=== PATIENT | male | born 1985 | race Caucasian/White ===

== ENCOUNTER 2023-07-02 11:26 | Day surgery (SDC) | payer OTHER ==
[2023-07-02] MEDS ORDERED: LACTATED RINGERS 1,000 ML IV ONE (12:12)
--- NOTE | 2023-07-02 12:41 | ANESTHESIA ---
Pre-Anesthesia VS, & Labs - Diagnosis desires sterilization - Procedure vasectomy Vital Signs: Temp Pulse Resp BP Pulse Ox O2 Flow Rate 36.2 C L 66 10 L 131/90 H 98 07/02/23 11:55 07/02/23 11:55 07/02/23 11:55 07/02/23 11:55 07/02/23 11:55 Height: 6 ft 6 in Weight (kg): 131 kg Body Mass Index: 33.3 BMI Classification: Obese - NPO >8 hours Home Medications and Allergies Home Medications: Ambulatory Orders Dextroamphetamine/Amphetamine [Adderall 10 mg Tablet] 10 mg PO DAILY 06/26/23 Levothyroxine Sodium [Synthroid] 224 mcg PO DAILY 06/26/23 Dextroamphetamine/Amphetamine [Adderall 10 mg Tablet] 10 mg PO DAILY 06/26/23 Levothyroxine Sodium [Synthroid] 224 mcg PO DAILY 06/26/23 Allergies/Adverse Reactions: Allergies Allergy/AdvReac Type Severity Reaction Status Date / Time No Known Drug Allergies Allergy Verified 06/26/23 09:30 Anes History & Medical History - Anesthetic History Anesthesia Complications: reports: No previous complications Family history of Anesthesia Complications: Denies Family history of Malignant Hyperthermia: Denies - Medical History Cardiovascular: reports: None Pulmonary: reports: Sleep apnea, Other (current cough) Gastrointestinal: reports: Diverticulitis Urinary: reports: None Musculoskeletal: reports: None Endocrine/Autoimmune: reports: Other Psychosocial: reports: Alcohol, Cannabis (occasional) History of Cancer?: Yes (thyroid) - Surgical History General: reports: Other Eyes Ears Nose Throat (EENT): reports: Myringotomy (tubes) Exam General: Alert, Oriented x3, Cooperative Dental: WNL Mouth Openin Fingerbreadth Neck Mobility: Normal Mallampati classification: II Thyromental Distance: less than 4 cm Respiratory: Lungs clear Cardiovascular: Regular rate Plan Anesthesia Type: General, Total IV Consent for Procedure(s) Verified and Reviewed: Yes Code Status: Attempt Resuscitation ASA classification: 2-Mild systemic disease Is this case an emergency?: No
--- NOTE | 2023-07-02 13:25 | OPERATIVE REPORT ---
Operative Report - General Procedure Date: 07/02/23 Planned Procedure: bilateral vasectomy Pre-Op Diagnosis: elective sterilization Procedure Performed: bilateral vasectomy Post Op Diagnosis: elective sterilization - Procedure Note Primary Surgeon: Damion Anesthesia Provider: LEATHA Anesthesia Technique: General LMA Estimated Blood Loss (mL): 1 Findings: right sided venous bleeding from distal stump oversewn Complications: converted to LMA from mac sedation - Other Other Information/Narrative: After informed consent was obtained the patient was brought to the OR and laid in the supine position. At that point time the patient was anesthetized per anesthesia protocols, and prepped and draped in usual sterile fashion. A timeout was performed reconfirming the patient and procedure. Attention was paid to the left side where the vas deferens was identified. A small skin wheal was raised with 0.5% Marcaine. The patient was under MAC sedation but after starting the case he was converted to LMA for better sedation. Using a sharp mosquito the scrotal skin was carefully dissected away and the vas was identified. The vas sheath was opened with a blade and the vas was grasped and stripped out. It was then clamped on both sides with mosquitoes and the inner portion was cauterized away. These ends were then suture-ligated with 3-0 chromic suture. The distal end was allowed to drop back in and a fascial interposition stitch was placed. Hemostasis was excellent. Then the skin was then closed with 3-0 chromic suture. Identical procedure was then performed on the right side, except after suture ligating the right distal stump, some venous bleeding was noted and so this was oversewn again. After this, there was excellent hemostasis. Band-Aids were placed. This concluded the procedure. Counts were correct.
[2023-07-02] MEDS ORDERED: HYDROcod/ACETAM 5/325 MG TABLET PO PRN (14:21)
[2023-07-02] MEDS ORDERED: LACTATED RINGERS 50 ML IV ONE ×3 (14:22→14:42)
[2023-07-02] MEDS ORDERED: MORPHINE 2 MG/ML CARPUJECT IVP PRN (14:28)
[2023-07-02] MEDS ORDERED: METOCLOPRAMIDE 10 MG/2 ML VIAL IVP PRN (14:28)
[2023-07-02] MEDS ORDERED: ePHEDrine 50 MG/ML VIAL IVP PRN (14:28)
[2023-07-02] MEDS ORDERED: NALOXONE 0.4 MG/ML VIAL IVP PRN (14:28)
[2023-07-02] MEDS ORDERED: fentaNYL 100 MCG/2 ML VIAL IVP PRN (14:28)
[2023-07-02] MEDS ORDERED: ATROPINE ABBOJECT 1 MG/10 ML SYRINGE IVP PRN (14:28)
[2023-07-02] MEDS ORDERED: HYDROmorphone 0.5 MG/0.5 ML SYRINGE IVP PRN (14:28)
[2023-07-02] MEDS ORDERED: ONDANSETRON 4 MG/2 ML VIAL IVP PRN (14:28)
--- NOTE | 2023-07-02 14:31 | Discharge Plan ---
Discharge Plan Problem Reviewed?: Yes Disposition: Home, Self Care Condition: Good Diet: Regular Activity Restrictions: Additional Comments (as instructed) Driving Restrictions: No Instruction Topics: Vasectomy No Scalpel No Smoking: If you smoke, Please STOP! Call for help. Follow-up with: Brittny Dobson MD [Primary Care Provider] -
[2023-07-02 14:54] VITALS: O2SAT 100
[2023-07-02] MEDS ORDERED: LACTATED RINGERS 1,000 ML IV SCH (15:00)
[2023-07-02 15:13] VITALS: BP 121/87
--- NOTE | 2023-07-02 16:05 | ANESTHESIA POST OP EVALUATION ---
Anesthesia Post Eval - Post Anesthesia Eval Vitals: Last Vital Signs Temp 36.2 C L 07/02/23 15:05 Pulse 57 L 07/02/23 15:05 Resp 16 07/02/23 15:05 BP 121/87 H 07/02/23 15:05 Pulse Ox 100 07/02/23 15:05 O2 Flow Rate CV Function Including HR & BP: Stable Pain Control: Satisfactory Nausea & Vomiting: Negative Mental Status: Baseline Respiratory Status: Airway Patent Hydration Status: Satisfactory Anesthesia Complications: None
== END 2023-07-02 11:27 | disposition home or self-care (01) ==
LOC: OR 11:26
PROVIDERS: ATTEND Urology
DX: Z30.2 Encounter for sterilization (principal); G47.30 Sleep apnea, unspecified; E66.9 Obesity, unspecified; Z68.33 Body mass index [BMI] 33.0-33.9, adult

== ENCOUNTER 2023-11-30 07:20 | Outpatient (CLI) | payer OTHER ==
--- NOTE | 2023-11-30 07:57 | CT Report ---
PROCEDURE: Abdomen/Pelvis WO INDICATIONS: ABNORMAL FINDINGS IN URINE TECHNIQUE: A CT scan of the abdomen and pelvis was performed without the use of intravenous contrast. Images we re recorded and evaluated at appropriate window settings. Reformats: coronal and sagittal. For radiat ion dose reduction, the following was used: automated exposure control, adjustment of mA and/or kV ac cording to patient size. COMPARISON: None. FINDINGS: Image quality: Diagnostic. Lower chest: Unremarkable. Liver: No contour-deforming mass. Gallbladder and biliary tree: No radiopaque stones or wall thickening. No biliary dilation. Spleen: No splenomegaly. Pancreas: No pancreatic ductal dilation. Adrenals: No adrenal nodule. Kidneys and ureters: No hydronephrosis. No renal cystic lesion which requires follow up. No solid mas s. 2.9 cm right upper pole renal cyst.. Stomach, bowel and peritoneum: Moderate sigmoid diverticulosis is present. There is mild inflammatory change in the adjacent fat consistent with mild uncomplicated sigmoid diverticulitis. Normal appendi x. Lymph nodes: No central or retroperitoneal adenopathy. Vessels: No infrarenal aortic aneurysm. PELVIS Reproductive organs: Unremarkable. Bladder: No wall thickness, accounting for underdistention. Pelvic lymph nodes: No pelvic adenopathy by size criteria. Bones: No aggressive osseous abnormality. There is a moderate central posterior disc protrusion at L2 -L3 resulting in at least moderate canal stenosis. Other: No significant ventral or inguinal hernia. IMPRESSION: 1. Mild uncomplicated sigmoid diverticulitis. 2. No renal stone, ureteral stone, or hydronephrosis. 3. Note made of moderate central posterior disc protrusion at L2-L3, with at least moderate resultant canal stenosis. Reviewed by: Tate Grigsby MD on 11/30/2023 7:55 AM PDT Approved by: Tate Grigsby MD on 11/30/2023 7:55 AM PDT Station ID: [id number]
== END 2023-11-30 07:21 | disposition home or self-care (01) ==
LOC: DI 07:20
PROVIDERS: ATTEND Internal Medicine
DX: R82.998 Other abnormal findings in urine (principal); K57.32 Diverticulitis of large intestine without perforation or abscess without bleeding; S33.121A Dislocation of L2/L3 lumbar vertebra, initial encounter; M48.061 Spinal stenosis, lumbar region without neurogenic claudication

== ENCOUNTER 2024-02-20 10:19 | Outpatient (CLI) | payer OTHER ==
--- NOTE | 2024-02-20 10:54 | Sleep Patient Instructions ---
Sleep Center Visit Summary - Patient Visit Information Reason for Visit: Initial consult for evaluation of sleep disordered breathing and other sleep issues. - Patient Instructions Instructions Attached: Sleep Study, Sleep Study Home Monitor Additional Instructions: You will be completing a sleep study, either an in-lab polysomnography (PSG) or home sleep study (HST). You will follow-up in the sleep care office after the sleep study is completed to hear the results and talk about therapy, if needed. You will be called by our office staff to schedule this appointment, but you may contact us with any questions. - Clinic Information Contact: [facility] [address] [place] [id number] [email or web address] T: [phone]
--- NOTE | 2024-02-20 10:56 | SLEEP CARE CONSULTATION ---
Information from patient questionnaire entered by Johana Cruz. I have reviewed and concur with the information entered by Johana Cruz. This document represents the service I personally performed and the decisions made by me, Sandra Torres ARNP. History of Present Illness Service Date and Time: 02/20/2024 1019 Reason for Visit: New patient, Previously diagnosed sleep apnea Chief Complaint: reports: Insomnia, Unrefreshed sleep, Snoring, Excessive daytime sleepiness, Fatigue, Frequent awakenings at night Date of Onset: AT LEAST 5YRS Usual bedtime: 2400 Time it takes to fall asleep: 1HR Snores at night: Yes Observed to quit breathing while asleep: Yes Sleeps alone due to snoring: No Number of times waking at night: 2-3 Reasons for waking at night: reports: Snoring, Bathroom, Other (UNKNOWN). denies: Choking, Gasping for air Toss, Turn, or Twitch while sleeping: Yes Recalls having dreams: No Usually gets out of bed at: 0700 Feels refreshed in the morning: No Morning headache: No Sleepy or fatigued during the day: Yes Ever fallen asleep while driving: No Takes day naps: No Dreams during day naps: Yes Prior sleep studies: Yes Year and Where: 09/16/2021 [facility]; [place], [place] Type of Sleep Study: Home sleep study Additional HPI information: I had the pleasure of seeing ELVIA STYLES today regarding the possibility of him having a sleep disorder. His current complaints are insomnia, unrefreshed sleep, snoring, excessive daytime sleepiness, fatigue and frequent night awakenings. He snores loudly according to his and children. He has tried snoring strips with no improvement of his snoring. He was previously diagnosed with sleep apnea in 2021 and tried CPAP for about a month. He was unable to get to use it and sent it back. He has come back to try to take care of himself to be there for his family. He continues to wake up feeling tired and feeling fatigued during the day. - Parasomnia Symptoms Ever been unable to move upon waking from sleep: No Walks in sleep: No Talks in sleep: Yes Ever acted out dreams in sleep: No Ever felt weak in the knees when startled or emotional: No Bothered by creepy, crawly, restless sensations in legs: No Problems with memory or concentration: Yes (both) Subjective Initial [place] Sleepiness Scale score: 8 (02/20/24) Past Medical History Past Medical History: reports: Hypothyroidism, Attention deficit (ADHD), Other (THYROID CANCER THYROIDECTOMY; Diverticulitis) Social History The patient's occupation is a [employer]. Patient is Single and lives in . Have you smoked in the past 12 months: No Years of smokin Quit date: 2013 Alcohol use: Yes Alcohol amount and frequency: 1-4 BEERS PER WEEK Caffeine use: Yes Caffeine amount and frequency: 2CUPS COFFEE QD Family History Family history of sleep disordered breathing: Yes Family Hx Sleep Apnea: Father: Snoring, Sibling: Snoring Allergies and Home Medications Known drug allergies: No Drug allergies reviewed: Yes Home medication list reviewed: Yes (as listed) Allergy and home medication list: Allergies No Known Drug Allergies Allergy (Verified 02/20/24 10:20) Home Medications Medication Instructions Recorded Confirmed Last Taken Type Dextroamphetamine/Amphetamine 10 mg PO DAILY 06/26/23 02/20/24 07/01/23 History [Adderall 10 mg Tablet] Levothyroxine Sodium [Synthroid] 224 mcg PO DAILY 06/26/23 02/20/24 07/02/23 History Review of Systems Weight gain over past 5 years: 25 Weight loss over past 5 years: 35, currently down Cardiovascular: denies: high blood pressure Gastrointestinal: reports: heartburn, diarrhea, other (DIVERTICULITIS) Neurological: denies: headaches Psychiatric: reports: Attention Deficit Hyperactivity Ear/Nose/Throat: reports: wisdom teeth removed. denies: tonsillectomy Endocrine: reports: thyroid disease Physical Exam Vital signs obtained and entered by: JOHANA Ledesma MA Blood Pressure: 124/92 (LEFT ARM) Cuff size: long Heart Rate: 78 O2 Saturation: 99 Height: 6 ft 5 in Weight: 280 lb 12.8 oz Body Mass Index: 33.3 BMI Classification: Obese Neck circumference: 16.75 Nostrils: patent to airflow Mouth and throat: narrow oropharynx Soft palate: long Hard palate: normal Uvula: normal Uvula visualization: 25% Mallampati Class III Tongue: normal in size Tonsils: small Neck: normal w/o lymphadenopathy or thyromegaly Heart: regular rate and rhythm Lungs: clear bilaterally Impression and Plan 1. Suspected Obstructive Sleep Apnea-Hypopnea Syndrome, as previously diagnosed and as suggested by a history of loud and irregular snoring, observed cessation of breath while asleep, frequent awakening during the night, unrefreshed sleep, cognitive impairment, and excessive daytime sleepiness. He returns to resume treatment of his sleep apnea diagnosed in 2021. I recommend proceeding to polysomnography to confirm the diagnosis and to assess severity. I obtained agreement to proceed. The pathophysiology of obstructive sleep apnea-hypopnea syndrome was discussed with the patient and health risks of cardiovascular and cerebrovascular disease if not treated. Risks of drowsy driving discussed in detail and patient advised to avoid long distance driving and to lug breaker and wire puller at the first sign of drowsiness. Patient agreed to plan. * Schedule polysomnography * Avoid long distance driving or driving when feeling sleepy. * Avoid alcohol, sedative and muscle relaxant around bedtime. * Attempt to lose weight. * Review instructions provided by trained office staff on how to prepare for the sleep study. * Return for follow-up after sleep study completed. Counseling Topics: Weight loss health impact Plan: PSG/HST and follow up Visit Type: In Office Time Spent with Patient (minutes): 31 Provider Statement: I spent 100% of the Face to Face Visit with the patient with greater than 50% spent counseling the patient and coordination of care.
[2024-02-20 11:03] VITALS: BP 124/92; O2SAT 99
== END 2024-02-20 10:20 | disposition home or self-care (01) ==
LOC: SC 10:19
PROVIDERS: ATTEND Nurse Practitioner Family
DX: G47.33 Obstructive sleep apnea (adult) (pediatric) (principal); E66.9 Obesity, unspecified; Z68.33 Body mass index [BMI] 33.0-33.9, adult; Z87.891 Personal history of nicotine dependence
CPT/HCPCS: 99203; 99212

== ENCOUNTER 2024-03-09 19:38 | Outpatient (CLI) | payer OTHER | END 2024-03-09 19:39 | disposition home or self-care (01) | LOC: SC 19:38 | PROVIDERS: ATTEND Nurse Practitioner Family | DX: G47.33 Obstructive sleep apnea (adult) (pediatric) (principal); E66.9 Obesity, unspecified; Z68.32 Body mass index [BMI] 32.0-32.9, adult | CPT/HCPCS: 95810 ==

== ENCOUNTER 2024-03-27 16:14 | Outpatient (CLI) | payer OTHER ==
--- NOTE | 2024-03-27 16:36 | Sleep Patient Instructions ---
Sleep Center Visit Summary - Patient Visit Information Reason for Visit: Sleep study follow-up - Patient Instructions Instructions Attached: Apnea Sleep Mouthpieces Additional Instructions: You have opted for an oral mandibular appliance to control your sleep apnea. You should also sleep only on your sides or stomach and avoid sleeping on your back too. A list of certified dentists in the area was provided for you to find a dentist to have your oral appliance made. Once you have the device, please call and make a follow up appointment. We need to see you after you have been using the appliance for a month. We will evaluate your response to therapy and order a follow up sleep study to check efficiency of treatment. Please call office to schedule a follow up appointment in the sleep care office one month after obtaining new device. - Clinic Information Contact: [facility] [address] [place] [address] [email or web address] T: [phone]
--- NOTE | 2024-03-27 16:45 | SLEEP CARE CONSULTATION ---
Information from patient questionnaire entered by Miriam Odonnell. I have reviewed and concur with the information entered by Miriam Odonnell. This document represents the service I personally performed and the decisions made by , Sandra Torres ARNP. History of Present Illness Service Date and Time: 03/27/2024 1614 Initial [place] Sleepiness Scale score: 8 (02/20/2024) Current [place] Sleepiness Scale score: 7 (03/27/2024) Additional HPI information: ELVIA STYLES returns for follow up and results of the recently performed polysomnography. The sleep study done on 03/09/24 showed moderate obstructive sleep apnea with an average AHI of 16 and betty oxygen saturation of 87%. I explained the pathophysiology behind obstructive sleep apnea. We then spent quite a bit of time discussing different treatment options. For mild obst ructive sleep apnea, surgery and oral appliance are alternatives to nasal CPAP therapy but in moderate or severe cases, nasal CPAP is the most effective and reliable treatment. Because apnea is primarily in supine position, then positional management therapy could be effective. Methods discussed such as positioning with pillows, using a T-shirt with tennis balls in the back or commercial products that have a pillow format on back to prevent supine sleep. I reviewed the impact of weight changes on sleep apnea and strongly recommended losing weight. After some discussion, the patient opted to go with the oral appliance with positional therapy. Patient counseled not drink alcohol less than 4 hours before bedtime as it can increase snoring and apnea. Patient was cautioned about risks of drowsy driving until sleepiness symptoms resolve. Patient denies drowsy driving. Sleep Study - Results Type of Sleep Study: Home sleep study Prior sleep studies: Yes Year and Where: 09/16/2021 [facility]; [place], [place] Polysomnography/Home Sleep Study results: IMPRESSION: The quality of the study is good. The patient had slightly reduced sleep efficiency due to frequent awakenings throughout the night. The sleep architecture was abnormal for sleep fragmentation and lack of slow wave sleep (N3). Respiratory monitoring showed moderate obstructive sleep apnea- hypopnea (AHI = 16.0) associated with frequent arousals, oxyhemoglobin desaturation and mild hypoxia (betty oxygen saturation of 87%). The respiratory events occurred predominantly during supine sleep (supine AHI = 73.0; non-supine = 5.46). Snore was light to moderate in intensity. There was no significant periodic leg movement of sleep. Cardiac rhythm was normal sinus rhythm without significant arrhythmia. No abnormal behavior (parasomnia) observed during the night. Allergies and Home Medications Known drug allergies: No Drug allergies reviewed: Yes Home medication list reviewed: Yes (no changes) Allergy and home medication list: Allergies No Known Drug Allergies Allergy Review of Systems Review of systems same as previous: Yes (no changes) Physical Exam Vital signs obtained and entered by: Sandra Marquez NP Blood Pressure: 129/90 Cuff size: long (right arm) Heart Rate: 94 O2 Saturation: 98 Height: 6 ft 5 in Weight: 270 lb 6.4 oz Weight change since last visit: 10 lb loss Body Mass Index: 32.1 BMI Classification: Obese Impression and Plan 1. Obstructive Sleep Apnea-Hypopnea Syndrome moderate, with lowest oxygen saturation of 87%. Obviously this is the cause of the patients symptoms of unrefreshed sleep, and excessive daytime sleepiness. Positive pressure therapy could benefit attention deficit. After some discussion, the patient opted to go with the oral appliance. He was also cautioned that he will have to avoid sleeping supine since his AHI was severe when sleeping on his back. He voiced understanding and agreed. He was given a list of accredited dentists to call for a consult. A prescription was given to start process. Patient advised to check insurance to see if oral appliance is covered. I will have patient follow up a month after obtaining new device to check effectiveness of treatment. If reduction of symptoms and comfortable with treatment, a polysomnography will be ordered using the oral appliance to check efficacy of treatment. 2. Obesity, unspecified. Currently patients BMI is 32.1. He has lost weight. Obesity increases the risk of apnea, CPAP pressure requirements and overall health risks especially cardiovascular and diabetes. Thus patient is advised to continue to try to lose weight. * Oral appliance with positional therapy * Continue to try to lose weight. * Avoid alcohol consumption near bedtime. * Avoid supine sleep. * Return one month after oral appliance obtained. I will assess response to therapy at that time. Counseling Topics: Sleeping position, Weight loss health impact Prescriptions: Other (Oral appliance) Visit Type: In Office Time Spent with Patient (minutes): 27 Provider Statement: I spent 100% of the Face to Face Visit with the patient with greater than 50% spent counseling the patient and coordination of care.
[2024-03-27 16:52] VITALS: BP 129/90; O2SAT 98
== END 2024-03-27 16:15 | disposition home or self-care (01) ==
LOC: SC 16:14
PROVIDERS: ATTEND Nurse Practitioner Family
DX: G47.33 Obstructive sleep apnea (adult) (pediatric) (principal); E66.9 Obesity, unspecified; Z68.32 Body mass index [BMI] 32.0-32.9, adult
CPT/HCPCS: 99212; 99213